=== PATIENT | female | born 1995 | race Two or more races ===

== ENCOUNTER 2025-07-18 17:40 | Emergency (ER) | payer SELFPAY ==
[2025-07-18 17:42] VITALS: BMI 20.3
[2025-07-18 18:32] VITALS: BP 130/72; PULSE 88; RESP 18; TEMP 36.6; O2SAT 99
--- NOTE | 2025-07-18 18:46 | XR_ITS ---
Examination: Hand, right 3 views Technique: Hand AP, oblique, lateral 3 views Date and time of exam: July 18, 2025, 1920 hours INDICATIONS: Injury to the hand today, and pain FINDINGS: No fracture. On the lateral view the distal ulna is dorsally position, clinical correlation advised No foreign body IMPRESSION: No fracture.
--- NOTE | 2025-07-18 18:46 | XR_ITS ---
Examination: Fingers, right hand second digit 3 views Technique: AP, oblique, lateral views right hand second digit. Exam date and time: July 18, 2025 1920 hours MEDICATIONS: Injured in the hand today with second digit pain. FINDINGS: No acute fracture No dislocation Soft tissue swelling dorsal to the second metacarpal phalangeal joint IMPRESSION: No acute fracture
--- NOTE | 2025-07-18 18:55 | PD.EDHAND ---
Upper Extremity Injury RME/HPI General Chief Complaint: Wound/Laceration Stated Complaint: SMASHED MY R FINGER Time Seen by Provider: 07/18/25 18:46 Arrival date/time: 07/18/25 17:40 29F with no significant PMH presents to ED with R index finger/hand pain after he was caught in a door. Patient has not had a tetanus shot in the past 5 years. Limitations: no limitations Related Data Allergies Allergy/AdvReac Type Severity Reaction Status Date / Time No Known Allergies Allergy Verified 07/18/25 17:45 Review of Systems Review of Systems Systems Reviewed: All systems reviewed, normal except as documented Musculoskeletal Musculoskeletal: Reports as per HPI and Reports arthralgias Integumentary/Breasts Skin/Breast: Reports as per HPI and Reports skin pain Past Medical History Social History SMOKING STATUS: Never smoker ED Exam General Limitations: Present no limitations General appearance: Present alert and in no apparent distress Head Head exam: Present atraumatic Neck Neck exam: Present normal inspection, full ROM and trachea midline Chest Chest inspection: Present normal inspection and symmetric chest wall rise Expanded Upper Extremity Exam Hand exam: Present tenderness, swelling, abrasion, skin avulsion (superficial R index finger/hand) and ecchymosis Neurological Exam Neurological exam: Present alert and oriented X3 Psychiatric Psychiatric exam: Present normal affect and normal mood Skin Skin exam: Present warm, dry, intact and normal color Course Quality Measures none Orders Category Date Time Status Wound Care NOW Care 07/18/25 18:46 Active XR finger RT min 2V Stat Exams 07/18/25 18:46 Completed XR hand comp RT min 3V Stat Exams 07/18/25 18:46 Completed Naproxen [Naprosyn] Med 07/18/25 18:46 Discontinued 500 mg PO X1 ONE TET,DIP/PERT AC (Adult)-Tdap [Boostrix Adult (Tdap) Med 07/18/25 18:46 Discontinued Vacc] 0.5 ml IMI .ONCE ONE Vital Signs Vital signs: Vital Signs Temperature 98 F 07/18/25 18:32 Pulse Rate 88 07/18/25 18:32 Respiratory Rate 18 07/18/25 18:32 Blood Pressure 130/72 07/18/25 18:32 Pulse Oximetry (%) 99 07/18/25 18:32 Oxygen Delivery Method Room Air 07/18/25 18:32 O2 at 99% on RA and WNLs Extremity Injury MDM Narrative MDM Narrative:: 29F with no significant PMH presents to ED with R index finger/hand pain after he was caught in a door. Patient has not had a tetanus shot in the past 5 years. Physical exam reveals R index finger/hand swelling, tenderness, and bruising. ROM limited. Skin abrasions/superficial avulsions on surface. Patient is afebrile, alert, but appears to be in pain. XR no fx. Wound cleaned/bandaged. Tdap given. Patient data External records reviewed:: None Clinical information provided by:: patient Social determinants that could affect healthcare access:: none Patient has the following chronic illnesses:: none How is presenting disease/condition affected by chronic disease/condition?: no chronic disease Evaluation data The following diagnostics were reviewed and interpreted by me:: radiology exam(s) Lab and/or radiology exams considered but not ordered:: ordered Interpretation Summary: above Medications / Prescriptions Medications or Prescriptions considered but not ordered:: ordered Medication administrations:: Medication Administration History Discontinued Medications Diphtheria/Tetanus/Acell Pertussis (Diphth,Pertuss(Acell),Tet Vac 0.5 Ml Syr- Adult) 0.5 ml IMi .ONCE ONE Stop: 07/18/25 18:47 Last Admin: 07/18/25 18:59 Dose: 0.5 ml Documented By: ANA Naproxen (Naproxen 250 Mg Tablet) 500 mg PO X1 ONE Stop: 07/18/25 18:47 Last Admin: 07/18/25 18:58 Dose: 500 mg Documented By: ANA above Consultations Consultation(s) initiated? (list below): No Diagnosis Upper Extremity Injury Differential Diagnosis: sprain and strain of wrist, fracture of wrist, finger sprain, dislocation of finger, Colles' fracture, fracture of hand and other (skin avulsion) Most likely diagnosis given after review of the tests above:: skin avulsion and Admission Indicated Admission indicated?: not indicated Admission Request Was there a request for admission?: No Disposition Plan Disposition Plan: Discharge Discharge Attestation Discharge Attestation: The patient and all family members were given an opportunity to ask questions and understood the discharge instructions. Discharge instructions specifically effects, indications for sooner follow up or return to the emergency department, and the expected course of current diagnosis. Patient condition: Stable Discharge Plan Plan Patient Disposition: HOME (Self Care) Discharge Disposition comment: Stable Prescriptions/Referrals Referrals: No Primary/Family,Physician [Primary Care Provider] - In 1 week Problem List Clinical Impression: Contusion of finger, Avulsion of skin Patient/Caregiver Discharge Instructions Education Materials: ED Finger Contusion, ED Skin Avulsion Additional Instructions: Please follow-up with PCP within 24-48 hours and return immediately if symptoms worsen. If problem persists, recommend outpatient PT and/or MRI follow-up. In the meantime, rest, use ice/heat, and/or compression. Print Language: Pashto Stand Alone Forms: Patient Portal Info Letter PA/RECRUITMENT AND OUTREACH ASSISTANT Supervising Physician BARBARA/CHUCK Supervising Physician: Dr. Mike
[2025-07-18] MEDS: NAPROXEN 250 MG TABLET 500 MG PO (18:58)
[2025-07-18] MEDS: DIPHTH,PERTUSS(ACELL),TET VAC 0.5 ML SYR- ADULT IMi (18:59)
== END 2025-07-18 21:51 | disposition home or self-care (01) ==
PROVIDERS: Emergency Provider Emergency Medicine
DX: S60.00XA Contusion of unspecified finger without damage to nail, initial encounter (principal); W23.0XXA Caught, crushed, jammed, or pinched between moving objects, initial encounter
CPT/HCPCS: 73130; 73140; 90471; 90715; 99282; A9270